=== PATIENT | female | born 1965 ===

== ENCOUNTER 2017-04-04 14:35 | Emergency (ER) | payer MEDICAID ==
[2017-04-04 14:43] VITALS: BMI 25.7
[2017-04-04 15:02] VITALS: RESP 18
[2017-04-04] MEDS ORDERED: Sodium Chloride 0.9% 1,000 ML IV STA (15:03)
[2017-04-04] MEDS ORDERED: guaiFENesin-Codeine 100-10mg/5ml Syrup (5 ml) UD PO STA (15:05)
[2017-04-04] MEDS ORDERED: Levalbuterol 1.25 MG/3 ML Inhal Soln UD IH STA (15:05)
--- NOTE | 2017-04-04 15:12 | ED PDOC ---
Arrival/HPI - General Chief Complaint: Headache Time Seen by Provider: 04/04/17 14:44 Historian: Patient - History of Present Illness Narrative History of Present Illness (Text): 04/04/17 15:13 A 51 year old female, whose past medical history includes hypertension and gastritis, presents to the emergency department complaining of a dry cough for the past 2 weeks. Patient notes a headache also x 2 weeks with the cough. She also has been having vomiting and epigastric pain, described as a burning sensation, for the past 3 days. Patient takes lisinopril and lexapro for hypertension and depression. Reports she went to [facility] [place] two days ago waited 6 hours and was not seen. Patient notes weakness, shortness of breath, diarrhea and sore throat but denies burning urination or any other complaints at this time. Time/Duration: Other (2 weeks, 3 days) Symptom Onset: Sudden Symptom Course: Unchanged Activities at Onset: Rest Context: Home Associated Symptoms (Text): weakness, shortness of breath, diarrhea and sore throat Past Medical History - Provider Review Nursing Documentation Reviewed: Yes - Infectious Disease Hx of Infectious Diseases: None - Cardiac Hx Hypertension: Yes - Gastrointestinal Hx Gastritis: Yes - Psychiatric Hx Substance Use: No - Surgical History Hx Hysterectomy: Yes Family/Social History - Physician Review Nursing Documentation Reviewed: Yes Family/Social History: No Known Family HX Smoking Status: Never Smoked Hx Alcohol Use: No Hx Substance Use: No Allergies/Home Meds Allergies/Adverse Reactions: Allergies tramadol Adverse Reaction (Verified 04/04/17 14:58) palpitations Home Medications: Home Meds Medication Instructions Recorded Confirmed Lexapro 1 tab PO DAILY 04/04/17 04/04/17 Lisinopril [Zestril] 10 mg PO DAILY 04/04/17 04/04/17 Omeprazole 20 mg PO DAILY 04/04/17 04/04/17 Review of Systems - Physician Review All systems were reviewed & negative as marked: Yes - Review of Systems Constitutional: Fatigue, Other (generalized weakness) ENT: Sore Throat Respiratory: SOB, Cough Gastrointestinal: Abdominal Pain, Diarrhea, Vomiting Genitourinary Female: absent: Dysuria, Other Neurological: Headache. absent: Dizziness, Focal Weakness Physical Exam Vital Signs Reviewed: Yes Vital Signs Temp Pulse Resp BP Pulse Ox 04/04/17 14:59 98.1 F 79 18 111/75 98 Temperature: Afebrile Blood Pressure: Normal Pulse: Regular Respiratory Rate: Normal Appearance: Positive for: Well-Appearing, Non-Toxic, Comfortable Pain Distress: None Mental Status: Positive for: Alert and Oriented X 3 - Systems Exam Head: Present: Atraumatic, Normocephalic Pupils: Present: PERRL Extroacular Muscles: Present: EOMI Conjunctiva: Present: Normal Mouth: Present: Moist Mucous Membranes Pharnyx: Present: Normal. No: ERYTHEMA, EXUDATE Neck: Present: Normal Range of Motion Respiratory/Chest: Present: Clear to Auscultation, Good Air Exchange. No: Respiratory Distress, Accessory Muscle Use Cardiovascular: Present: Regular Rate and Rhythm, Normal S1, S2. No: Murmurs Abdomen: Present: Tenderness (epigastric), Normal Bowel Sounds. No: Distention , Peritoneal Signs Back: Present: Normal Inspection Upper Extremity: Present: Normal Inspection. No: Cyanosis, Edema Lower Extremity: Present: Normal Inspection. No: Edema Neurological: Present: GCS=15, CN II-XII Intact, Speech Normal Skin: Present: Warm, Dry, Normal Color. No: Rashes Psychiatric: Present: Alert, Oriented x 3, Normal Insight, Normal Concentration Medical Decision Making ED Course and Treatment: 04/04/17 15:09 Impression: A 51 year old female with a dry cough, headache, vomiting and epigastric pain. Differential Diagnosis included but are not limited to: Bronchitis vs Pneumonia VS Gastritis Plan: -- EKG -- CT head -- chest xray -- US abdomen -- Urinalysis -- labs -- Toradol, IV fluids, Xopenex, Robitussin, Reglan -- Reassess and disposition Progress Notes: CT head: no acute findings. Chest xray: no active disease. EKG: Ordered, reviewed, and independently interpreted the EKG. Rate : 71 BPM Rhythm : NSR Interpretation : Normal interval, normal axis, no ST/T changes Abdomen US Creator : Kaylin Figueroa MD 04/04/2017 16:47 IMPRESSION: Echogenic liver may be seen in setting of hepatic parenchymal disease or fatty infiltration. 6 mm left lower pole calculus. No hydronephrosis. 04/04/17 17:52 Patient with noted history. EKG is normal with unremarkable CXR. Sono with renal stone but not showing any hydronephrosis. Labs with elevated LDH but otherwise negative, including negative CE and d-dimer. Patient given meds and reports resolution of headache, GI symptoms, and cough/shortness of breath. Will d/c on abx and robitussin AC for bronchitis. - Lab Interpretations Lab Results: 04/04/17 15:15 04/04/17 15:15 Lab Results 04/04/17 17:00: Urine Color Light yellow, Urine Appearance Clear, Urine pH 6.5, Ur Specific [place] 1.010, Urine Protein Negative, Urine Glucose (UA) Negative, Urine Ketones Negative, Urine Blood Small H, Urine Nitrate Negative, Urine Bilirubin Negative, Urine Urobilinogen 0.2, Ur Leukocyte Esterase Negative, Urine RBC Pending, Urine WBC Pending 04/04/17 15:15: Sodium 137, Potassium 4.6, Chloride 100, Carbon Dioxide 29, Anion Gap 13, BUN 10, Creatinine 0.8, Est GFR ( Amer) > 60, Est GFR (Non- Af Amer) > 60, Random Glucose 101, Calcium 9.4, Magnesium 1.8, Total Bilirubin 0.6, AST 23, ALT 28, Alkaline Phosphatase 69, Lactate Dehydrogenase 1234 H, Total Creatine Kinase 56, Troponin I < 0.01, NT-Pro-B Natriuret Pep 134, Total Protein 6.9, Albumin 3.8, Globulin 3.1, Albumin/Globulin Ratio 1.2, Lipase 52 04/04/17 15:15: PT 10.4, INR 0.96, APTT 28.1, D-Dimer, Quantitative 0.36 04/04/17 15:15: WBC 8.6, RBC 4.10, Hgb 13.0, Hct 37.8, MCV 92.2, MCH 31.7, MCHC 34.4, RDW 13.0, Plt Count 251, MPV 10.8, Gran % 76.4 H, Lymph % (Auto) 16.6 L, [place] % (Auto) 6.3 H, Eos % (Auto) 0.5 L, Baso % (Auto) 0.2, Gran # 6.53 H, Lymph # 1.4, [place] # 0.5, Eos # 0.0, Baso # 0.02 I have reviewed the lab results: Yes - RAD Interpretation Radiology Orders: 04/04/17 15:01 CHEST ONE VIEW [RAD] Stat 04/04/17 15:03 Brain [HEAD W/O CONTRAST] [CT] Stat 04/04/17 15:04 ABDOMEN COMPLETE [US] Stat - EKG Interpretation Interpreted by ED Physician: Yes Type: 12 lead EKG - Medication Orders Current Medication Orders: Discontinued Medications Guaifenesin/Codeine Phosphate (Robitussin W/Codeine) 10 ml PO ONCE STA Stop: 04/04/17 15:06 Last Admin: 04/04/17 15:23 Dose: 10 ml Sodium Chloride (Sodium Chloride 0.9%) 1,000 mls @ 999 mls/hr IV .Q1H1M STA Stop: 04/04/17 16:03 Last Admin: 04/04/17 15:24 Dose: 999 mls/hr Ketorolac Tromethamine (Toradol) 30 mg IVP STAT STA Stop: 04/04/17 15:05 Last Admin: 04/04/17 15:23 Dose: 30 mg Levalbuterol HCl (Xopenex) 1.25 mg IH STAT STA Stop: 04/04/17 15:06 Last Admin: 04/04/17 15:24 Dose: 1.25 mg Metoclopramide HCl (Reglan) 10 mg IVP STAT STA Stop: 04/04/17 15:28 Last Admin: 04/04/17 15:32 Dose: 10 mg - Scribe Statement The provider has reviewed the documentation as recorded by the Jitendra Gibbs Provider Scribe Attestation: All medical record entries made by the Manuelibshellie were at my direction and personally dictated by me. I have reviewed the chart and agree that the record accurately reflects my personal performance of the history, physical exam, medical decision making, and the department course for this patient. I have also personally directed, reviewed, and agree with the discharge instructions and disposition. Disposition/Present on Arrival - Present on Arrival Any Indicators Present on Arrival: No History of DVT/PE: No History of Uncontrolled Diabetes: No Urinary Catheter: No History of Decub. Ulcer: No History Surgical Site Infection Following: None - Disposition Have Diagnosis and Disposition been Completed?: Yes Diagnosis: Bronchitis Disposition: HOME/ ROUTINE Disposition Time: 17:50 Patient Plan: Discharge Condition: GOOD Discharge Instructions (ExitCare): Kidney Stones (ED), Acute Bronchitis (ED) Additional Instructions: Take the medications as prescribed. Drink plenty of fluids. Avoid any spicy, greasy, or fatty food. Follow up with your primary care doctor and have your doctor repeat your LDH level. Return to the emergency department if any new concerning symptoms. Prescriptions: Azithromycin [Zithromax] 2 tab PO DAILY #6 tab guaiFENesin/Codeine [Codeine/Guaifenesin 10 MG/5 Ml-100 MG/5 Ml 5] 2 tsp PO Q6H PRN #120 ml PRN Reason: Cough Referrals: Bernabe Barreto MD [Primary Care Provider] - Follow up with primary
[2017-04-04 15:30] LABS: ADD MANUAL DIFF? NO
[2017-04-04 15:42] LABS: BASO # 0.02 K/mm3 (0.0-2.0); BASO % 0.2 % (0.0-3.0); EOS % 0.5 % (1.5-5.0); GRAN # 6.53 (1.4-6.5); GRAN % 76.4 % (50.0-68.0); HEMATOCRIT 37.8 % (36.0-48.0); LYMPH # 1.4 (1.2-3.4); LYMPH % 16.6 % (22.0-35.0); MEAN CELL VOLUME 92.2 fL (80.0-105.0); MEAN CORPUSCULAR HEMOGLOBIN 31.7 pg (25.0-35.0); MEAN CORPUSCULAR HGB CONC 34.4 g/dl (31.0-37.0); MEAN PLATELET VOLUME 10.8 fl (7.0-11.0); MONO # 0.5 (0.1-0.6); MONO % 6.3 % (1.0-6.0); PLATELET COUNT 251 10^3/uL (120.0-450.0); WHITE BLOOD COUNT 8.6 10^3/ul (4.5-11.0)
[2017-04-04 15:47] LABS: ALB/GLOB RATIO 1.2 (1.1-1.8); ALKALINE PHOSPHATASE 69 U/L (38-133); ALT/SGPT 28 U/L (7-56); AST/SGOT 23 U/L (15-39); BILIRUBIN,TOTAL 0.6 mg/dL (0.2-1.3); BLOOD UREA NITROGEN 10 mg/dL (7-21); CALCIUM 9.4 mg/dL (8.4-10.5); CARBON DIOXIDE 29 mmol/L (21-33); CHLORIDE 100 mmol/L (98-107); GFR AFRICAN-AMERICAN > 60; GLUCOSE,RANDOM 101 mg/dL (70-110); LIPASE 52 U/L (23-300); MAGNESIUM 1.8 mg/dL (1.7-2.2); POTASSIUM 4.6 mmol/L (3.6-5.0); SODIUM 137 mmol/L (132-148); TOTAL PROTEIN 6.9 g/dL (5.8-8.3)
[2017-04-04 16:05] LABS: INR 0.96 (0.93-1.08); PARTIAL THROMBOPLASTIN TIME 28.1 Seconds (23.7-30.8)
[2017-04-04 16:06] LABS: TROPONIN I < 0.01 ng/mL
[2017-04-04 16:07] LABS: D DIMER 0.36 mg/L FEU (0-0.50)
--- NOTE | 2017-04-04 16:10 | CT ---
PROCEDURE: CT HEAD WITHOUT CONTRAST. HISTORY: headache COMPARISON: None available. TECHNIQUE: Axial computed tomography images were obtained through the head/brain without intravenous contrast. Radiation dose: Total exam DLP = 725 mGy-cm. This CT exam was performed using one or more of the following dose reduction techniques: Automated exposure control, adjustment of the mA and/or kV according to patient size, and/or use of iterative reconstruction technique. FINDINGS: HEMORRHAGE: No intracranial hemorrhage. BRAIN: No mass effect or edema. No atrophy or chronic microvascular ischemic changes. VENTRICLES: Unremarkable. No hydrocephalus. CALVARIUM: Unremarkable. PARANASAL SINUSES: There is opacification of the right side of the sphenoid sinus MASTOID AIR CELLS: Unremarkable as visualized. No inflammatory changes. OTHER FINDINGS: None. IMPRESSION: No acute intracranial findings
--- NOTE | 2017-04-04 16:45 | US ---
HISTORY: epigastric pain, vomiting COMPARISON: None available. TECHNIQUE: Sonographic evaluation of the abdomen. FINDINGS: LIVER: Measures 14.7 cm in sagittal dimension. Echogenic liver may be seen in setting of hepatic parenchymal disease or fatty infiltration. No focal hepatic mass identified. The main portal vein appears patent with normal directional flow. No intrahepatic bile duct dilatation. GALLBLADDER: No gallstones. No gallbladder wall thickening. Negative sonographic Spangler's sign as assessed by the medical technologist prn. COMMON BILE DUCT: Measures 4 mm. PANCREAS: Not well visualized. RIGHT KIDNEY: Measures 10.2 x 4.5 x 4.8 cm. No obstructing calculus or hydronephrosis identified. LEFT KIDNEY: Measures 9.5 x 5.1 x 4.5 cm. 0.6 x 0.6 cm echogenic focus consistent with calculus, lower pole. No hydronephrosis. SPLEEN: Measures approximately 8 cm. AORTA: Limited views appear unremarkable. IVC: Limited views appear unremarkable. OTHER FINDINGS: None. IMPRESSION: Echogenic liver may be seen in setting of hepatic parenchymal disease or fatty infiltration. 6 mm left lower pole calculus. No hydronephrosis.
[2017-04-04 17:27] LABS: PH,URINE 6.5 (4.7-8.0); URINE BILIRUBIN NEGATIVE (NEGATIVE); URINE BLOOD SMALL (NEGATIVE); URINE GLUCOSE (UA) NEGATIVE (NEGATIVE); URINE KETONE NEGATIVE (NEGATIVE); URINE LEUKOCYTE ESTERASE NEGATIVE Leu/uL (NEGATIVE); URINE PROTEIN NEGATIVE mg/dL (<30 mg/dL); URINE UROBILINOGEN 0.2 E.U./dL (<1 E.U./dL)
[2017-04-04 17:31] LABS: URINE APPEARANCE CLEAR (CLEAR); URINE COLOR LIGHT YELLOW (YELLOW)
[2017-04-04 18:10] LABS: URINE BACTERIA LARGE (NEG); URINE WBC 0 - 2 /hpf (0-6)
[2017-04-04 18:14] VITALS: BP 112/62; PULSE 69; TEMP 98; O2SAT 99
--- NOTE | 2017-04-05 08:23 | RAD ---
PROCEDURE: CHEST RADIOGRAPH, 1 VIEW HISTORY: shortness of breath, chest tight COMPARISON: None available. FINDINGS: LUNGS: The lungs are well inflated and clear. PLEURA: No pneumothorax or pleural fluid seen. CARDIOVASCULAR: Normal. OSSEOUS STRUCTURES: No significant abnormalities. VISUALIZED UPPER ABDOMEN: Normal. OTHER FINDINGS: None. IMPRESSION: No active pulmonary disease.
--- NOTE | 2017-04-05 23:24 | CARD ---
APPROVED REPORT EKG Measurement Heart [id number] ID [id number] <Conclusion> Normal sinus rhythm Normal ECG
== END 2017-04-04 18:16 | disposition home or self-care (01) ==
LOC: MERGE 14:35 → ED 14:35
DX: J40 Bronchitis, not specified as acute or chronic (principal)
CPT/HCPCS: 70450; 71010; 76700; 80053; 81001; 82550; 83615; 83690; 83735; 83880; 84484; 85025; 85378; 85610; 85730; 93005; 96361; 96374; 96375; 99285; J1885; J2765; J7040

== ENCOUNTER 2017-09-08 21:12 | Emergency (ER) | payer MEDICAID ==
[2017-09-08 21:13] VITALS: BMI 25.7
[2017-09-08 21:58] VITALS: RESP 18; TEMP 98; O2SAT 98
--- NOTE | 2017-09-08 21:58 | ED PDOC ---
Arrival/HPI - General Time Seen by Provider: 09/08/17 21:22 Historian: Patient - History of Present Illness Narrative History of Present Illness (Text): 09/08/17 21:57 Lisa Felix is a 52 year old female, whose past medical history includes hypertension, who presents to the Emergency department complaining of upper back pain tonight. Patient has a history of chronic thoracic back pain for a year with occassional exacerbations.She has been under evaluation by her doctor and pain management.States she is scheduled for an outpatient MRI on 09/25/17. Patient regularly takes Gabapentin but denies any relief. Patient denies any fever, chills, chest pain, shortness of breath, nausea, vomiting, urinary symptoms, headache, dizziness, trauma/injury, or any other complaints. Time/Duration: Other (today) Symptom Onset: Gradual Symptom Course: Other (Chronic) Activities at Onset: Light Context: Home Past Medical History - Provider Review Nursing Documentation Reviewed: Yes - Infectious Disease Hx of Infectious Diseases: None - Cardiac Hx Hypertension: Yes - Gastrointestinal Hx Gastritis: Yes - Psychiatric Hx Substance Use: No - Surgical History Hx Hysterectomy: Yes Family/Social History - Physician Review Nursing Documentation Reviewed: Yes Family/Social History: Unknown Family HX Smoking Status: Never Smoked Hx Alcohol Use: No Hx Substance Use: No Allergies/Home Meds Allergies/Adverse Reactions: Allergies tramadol Adverse Reaction (Verified 04/04/17 14:58) palpitations Home Medications: Home Meds Medication Instructions Recorded Confirmed Lexapro 1 tab PO DAILY 04/04/17 09/08/17 Lisinopril [Zestril] 10 mg PO DAILY 04/04/17 09/08/17 Omeprazole 20 mg PO DAILY 04/04/17 09/08/17 Review of Systems - Physician Review All systems were reviewed & negative as marked: Yes - Review of Systems Constitutional: Normal. absent: Fevers Respiratory: Normal. absent: SOB, Cough Cardiovascular: Normal. absent: Chest Pain Gastrointestinal: Normal. absent: Abdominal Pain, Diarrhea, Nausea, Vomiting Genitourinary Female: Normal. absent: Dysuria, Frequency, Hematuria, Urine Output Changes Musculoskeletal: Back Pain (+upper back pain) Neurological: Normal. absent: Headache, Dizziness Physical Exam Vital Signs Reviewed: Yes Vital Signs Temp Pulse Resp BP Pulse Ox 09/08/17 21:13 98 F 72 18 117/79 98 Temperature: Afebrile Blood Pressure: Normal Pulse: Regular Respiratory Rate: Normal Appearance: Positive for: Well-Appearing, Non-Toxic, Comfortable Pain Distress: None Mental Status: Positive for: Alert and Oriented X 3 - Systems Exam Head: Present: Atraumatic, Normocephalic Pupils: Present: PERRL Extroacular Muscles: Present: EOMI Conjunctiva: Present: Normal Mouth: Present: Moist Mucous Membranes Neck: Present: Normal Range of Motion Respiratory/Chest: Present: Clear to Auscultation, Good Air Exchange. No: Respiratory Distress, Accessory Muscle Use Cardiovascular: Present: Regular Rate and Rhythm, Normal S1, S2. No: Murmurs Abdomen: Present: Normal Bowel Sounds. No: Tenderness, Distention, Peritoneal Signs Back: Present: Normal Inspection. No: CVA Tenderness, Midline Tenderness, Paraspinal Tenderness Upper Extremity: Present: Normal Inspection. No: Cyanosis, Edema Lower Extremity: Present: Normal Inspection. No: Edema Neurological: Present: GCS=15, CN II-XII Intact, Speech Normal Skin: Present: Warm, Dry, Normal Color. No: Rashes Psychiatric: Present: Alert, Oriented x 3, Normal Insight, Normal Concentration Medical Decision Making ED Course and Treatment: 09/08/17 21:58 Impression: 52 year old female complaining of chronic upper back pain. Differential Diagnosis included but are not limited to: chronic pain vs. musculoskeletal pain Plan: -- CT Thoracic Spine w/o contrast -- Flexeril -- Toradol -- Reassess and disposition Prior Visits: Notes and results from previous visits were reviewed. On 04/04/17, pt was seen in the Emergency department for dry cough, headache, vomiting, and epigastric pain. Pt was discharged home. Progress Notes: 09/08/17 23:27 Reviewed radiology, CT Thoracic Spine shows: Vertebrae: No acute fracture. Degenerative changes with prominent anterior osteophyte formation. Mild S-shaped thoracolumbar scoliosis. Discs/spinal canal/neural foramina: No acute findings. No spinal canal stenosis. Additional findings: Hypoventilatory changes/atelectasis. Bilateral intrarenal calculi. IMPRESSION: No acute osseous abnormality. Degenerative changes with prominent anterior osteophyte formation. Hypoventilatory changes/atelectasis. Bilateral intrarenal calculi. 09/08/17 23:36 On reevaluation the patient feels better after medication and is in no acute distress. Patient is stable for discharge. Patient was instructed to follow up with physician/pain management/clinic in 1-2 days or return if symptoms persist/ worsen or new concerning symptoms arise. - RAD Interpretation Radiology Orders: 09/08/17 21:59 THORACIC SPINE W/O CONT [CT] Stat Textile Scrap Salvager: Radiologist - Medication Orders Current Medication Orders: Discontinued Medications Cyclobenzaprine HCl (Flexeril) 10 mg PO ONCE ONE Stop: 09/08/17 22:01 Ketorolac Tromethamine (Toradol) 60 mg IM ONCE ONE Stop: 09/08/17 22:01 - Scribe Statement The provider has reviewed the documentation as recorded by the Jitendra Eric Provider Scribe Attestation: All medical record entries made by the Scribshellie were at my direction and personally dictated by me. I have reviewed the chart and agree that the record accurately reflects my personal performance of the history, physical exam, medical decision making, and the department course for this patient. I have also personally directed, reviewed, and agree with the discharge instructions and disposition. Disposition/Present on Arrival - Present on Arrival Any Indicators Present on Arrival: No History of DVT/PE: No History of Uncontrolled Diabetes: No Urinary Catheter: No History Surgical Site Infection Following: None - Disposition Have Diagnosis and Disposition been Completed?: Yes Diagnosis: Musculoskeletal back pain Disposition: HOME/ ROUTINE Disposition Time: 23:36 Patient Plan: Discharge Patient Problems: Current Active Problems Problem Status Onset Musculoskeletal back pain Acute Condition: GOOD Discharge Instructions (ExitCare): Musculoskeletal Pain (ED) Additional Instructions: Rest/no strenuous physical activity/take meds as prescribed/follow up with your doctor this week Prescriptions: Naproxen [Naprosyn] 500 mg PO BID PRN #14 tab PRN Reason: Pain
--- NOTE | 2017-09-08 23:10 | CT ---
EXAM: CT Thoracic Spine Without Intravenous Contrast CLINICAL HISTORY: 52 years old, female; Pain; Pain in thoracic spine; Patient HX: Back and right shoulder pain TECHNIQUE: Axial computed tomography images of the thoracic spine without intravenous contrast. All CT scans at this facility use one or more dose reduction techniques, viz.: automated exposure control; ma/kV adjustment per patient size (including targeted exams where dose is matched to indication; i.e. head); or iterative reconstruction technique. Coronal and sagittal reformatted images were created and reviewed. COMPARISON: No relevant prior studies available. FINDINGS: Vertebrae: No acute fracture. Degenerative changes with prominent anterior osteophyte formation. Mild S-shaped thoracolumbar scoliosis. Discs/spinal canal/neural foramina: No acute findings. No spinal canal stenosis. Additional findings: Hypoventilatory changes/atelectasis. Bilateral intrarenal calculi. IMPRESSION: No acute osseous abnormality. Degenerative changes with prominent anterior osteophyte formation. Hypoventilatory changes/atelectasis. Bilateral intrarenal calculi.
[2017-09-09 00:06] VITALS: BP 112/70; PULSE 71
== END 2017-09-08 23:50 | disposition home or self-care (01) ==
LOC: ED 21:12
DX: M54.9 Dorsalgia, unspecified (principal); I10 Essential (primary) hypertension
CPT/HCPCS: 72128; 96372; 99282; J1885

== ENCOUNTER 2018-10-16 21:28 | Observation (INO) | payer MEDICAID ==
[2018-10-16 21:37] VITALS: BMI 27.6
--- NOTE | 2018-10-16 22:00 | ED PDOC ---
Arrival/HPI - General Chief Complaint: Chest Pain Time Seen by Provider: 10/16/18 21:38 Historian: Patient - History of Present Illness Narrative History of Present Illness (Text): 10/16/18 21:55 53 year old female, whose past medical history includes hypertension (on Lisinopril), presents to the emergency department for evaluation of intermittent chest pain which began this evening. Patient describes the chest pain as a crush ing sensation. Patient is not a smoker. Patient denies any fever, chills, shortness of breath, nausea, vomiting, diarrhea, urinary symptoms, back pain, neck pain, headache, dizziness, or any other complaints. Time/Duration: Other (this evening) Symptom Onset: Gradual Symptom Course: Intermittent Activities at Onset: Light Context: Home Past Medical History - Provider Review Nursing Documentation Reviewed: Yes - Infectious Disease Hx of Infectious Diseases: None - Cardiac Hx Cardiac Disorders: Yes Hx Hypertension: Yes - Pulmonary Hx Respiratory Disorders: No - Neurological Hx Neurological Disorder: No - HEENT Hx HEENT Disorder: No - Renal Hx Renal Disorder: No - Endocrine/Metabolic Hx Endocrine Disorders: No - Hematological/Oncological Hx Blood Disorders: No - Integumentary Hx Dermatological Disorder: No - Musculoskeletal/Rheumatological Hx Musculoskeletal Disorders: No - Gastrointestinal Hx Gastrointestinal Disorders: Yes Hx Gastritis: Yes - Genitourinary/Gynecological Hx Genitourinary Disorders: No - Psychiatric Hx Psychophysiologic Disorder: No Hx Substance Use: No - Surgical History Hx Hysterectomy: Yes - Anesthesia Hx Anesthesia: Yes Hx Anesthesia Reactions: No Hx Malignant Hyperthermia: No Family/Social History - Physician Review Nursing Documentation Reviewed: Yes Family/Social History: Diabetes Smoking Status: Never Smoked Hx Alcohol Use: No Hx Substance Use: No Allergies/Home Meds Allergies/Adverse Reactions: Allergies tramadol Adverse Reaction (Verified 10/16/18 21:37) palpitations Home Medications: Home Meds Medication Instructions Recorded Confirmed Lisinopril [Zestril] 10 mg PO DAILY 04/04/17 10/16/18 Review of Systems - Physician Review All systems were reviewed & negative as marked: Yes - Review of Systems Constitutional: absent: Fevers Respiratory: absent: SOB, Cough Cardiovascular: Chest Pain Gastrointestinal: absent: Diarrhea, Nausea, Vomiting Genitourinary Female: absent: Dysuria, Frequency, Hematuria Musculoskeletal: absent: Back Pain, Neck Pain, Other (leg pain) Neurological: absent: Headache, Dizziness Physical Exam Vital Signs Reviewed: Yes Appearance: Positive for: Well-Appearing, Non-Toxic, Comfortable Pain Distress: None Mental Status: Positive for: Alert and Oriented X 3 - Systems Exam Head: Present: Atraumatic, Normocephalic Pupils: Present: PERRL Extroacular Muscles: Present: EOMI Conjunctiva: Present: Normal Mouth: Present: Moist Mucous Membranes Neck: Present: Normal Range of Motion Respiratory/Chest: Present: Clear to Auscultation, Good Air Exchange. No: Respiratory Distress, Accessory Muscle Use Cardiovascular: Present: Regular Rate and Rhythm, Normal S1, S2. No: Murmurs Abdomen: No: Tenderness, Distention, Peritoneal Signs Back: Present: Normal Inspection Upper Extremity: Present: Normal Inspection. No: Cyanosis, Edema Lower Extremity: Present: Normal Inspection. No: Edema Neurological: Present: GCS=15, CN II-XII Intact, Speech Normal Skin: Present: Warm, Dry, Normal Color. No: Rashes Psychiatric: Present: Alert, Oriented x 3, Normal Insight, Normal Concentration Medical Decision Making ED Course and Treatment: 10/16/18 21:55 Impression: 53 year old female presents complaining of intermittent chest pain that began this evening. Plan: -- EKG -- Labs -- Chest X-ray -- Aspirin -- Reassess and disposition Progress Notes: 10/16/18 23:53 EKG shows NSR at 76 BPM with possible old anterior infarct. Nonspecific ST/T changes. Interpreted by me. 10/17/18 00:25 CXR Impression: As read by me, No acute process. 10/17/18 00:45 Case discussed with medical staffing coordinator and Dr. Tien Beckford who is aware and agrees with the plan. Accepts patient into hospitalist service. - RAD Interpretation Radiology Orders: 10/16/18 21:48 CHEST PORTABLE [RAD] Stat - Medication Orders Current Medication Orders: Discontinued Medications Aspirin (Aspirin) 325 mg PO ONCE STA Stop: 10/16/18 21:48 - Scribe Statement The provider has reviewed the documentation as recorded by the Jitendra Huntley Provider Scribe Attestation: All medical record entries made by the Scribe were at my direction and personally dictated by me. I have reviewed the chart and agree that the record accurately reflects my personal performance of the history, physical exam, medical decision making, and the department course for this patient. I have also personally directed, reviewed, and agree with the discharge instructions and disposition. Disposition/Present on Arrival - Present on Arrival Any Indicators Present on Arrival: No History of DVT/PE: No History of Uncontrolled Diabetes: No Urinary Catheter: No History of Decub. Ulcer: No History Surgical Site Infection Following: None - Disposition Have Diagnosis and Disposition been Completed?: Yes Diagnosis: Chest pain Disposition: HOSPITALIZED Disposition Time: 00:44 Patient Plan: Observation Patient Problems: Current Active Problems Problem Status Onset Chest pain Acute Condition: STABLE
[2018-10-16 22:10] LABS: HEMOGLOBIN 12.8 g/dL (12.0-16.0); MEAN CELL VOLUME 90.7 fl (80.0-105.0); MEAN CORPUSCULAR HEMOGLOBIN 31.2 pg (25.0-35.0); MEAN CORPUSCULAR HGB CONC 34.4 g/dl (31.0-37.0); MEAN PLATELET VOLUME 10.6 fl (7.0-11.0); RBC 4.1 10^6/uL (3.5-6.1); RED CELL DISTRIBUTION WIDTH 12.4 % (11.5-14.5); WHITE BLOOD COUNT 9.5 10^3/uL (4.5-11.0)
[2018-10-16 22:20] LABS: ALB/GLOB RATIO 1.2 (1.1-1.8); ALBUMIN 4.1 g/dL (3.0-4.8); BLOOD UREA NITROGEN 17 mg/dL (7-21); CALCIUM 9.3 mg/dL (8.4-10.5); GFR NON-AFRICAN AMERICAN > 60; INR 1.05
[2018-10-16 22:35] LABS: ALT/SGPT 36 U/L (7-56); AST/SGOT 25 U/L (14-36)
[2018-10-16 23:10] LABS: TROPONIN I < 0.01 ng/mL
[2018-10-17 01:16] VITALS: O2SAT 98
--- NOTE | 2018-10-17 02:21 | CP.PCM.HP ---
History of Present Illness - History of Present Illness History of Present Illness: Eric Zhang, PGY-1 Medicine H&P for Marissa Butler: CC: CP Pt is a 53 yo F with pmhx of HTN, gastritis and GERD who presents to the ED for complaint of CP which started at 8:30 this AM. She states that this morning she was laying down in bed when she noticed that she was having chest pressure and pain that rated at a 9/10 located substernally, and radiated to her head. She reports that this pain was not exacerbated by activity and that it was self limiting, episode lasted only about 1 min. She states that his has occured 2 oth er times, one bout of the same time of pain which also lasted for 1 minute which occured about 1 month ago. The second bout was about 2 weeks prior and occured under similar circumstances. She states that she has no hx of CAD or stent placement. She states that when the pain reaches her head she feels like her head is hot and then her whole body becomes warm. Pt at this time admits to chest pain that is now better at 4/10 and a dry cough which started about 2 weeks ago. She admits to sick contacts at work. She denies fevers, chills, headache, lightheadedness, dizziness, weakness, palpitations, SOB, leg swelling, abd pain, n/v, c/d, or dysuria. Pmhx: HTN, Gastritis, GERD Pshx: Denies Meds: Omperazole, Lisinopril 10 All: Tramadol - anaphylaxis Social: Denies any tobacco hx, denies etoh or illicit drug use Fam: Mom: Bone ca PMD: Dr. Carlos Pharm: [facility] Present on Admission - Present on Admission Any Indicators Present on Admission: No Review of Systems - Review of Systems Review of Systems: 12 point ROS and reviewed and negative except noted in HPI above. Past Patient History - Infectious Disease Hx of Infectious Diseases: None - Past Social History Smoking Status: Never Smoked - CARDIAC Hx Cardiac Disorders: Yes Hx Hypertension: Yes - PULMONARY Hx Respiratory Disorders: No - NEUROLOGICAL Hx Neurological Disorder: No - HEENT Hx HEENT Problems: No - RENAL Hx Chronic Kidney Disease: No - ENDOCRINE/METABOLIC Hx Endocrine Disorders: No - HEMATOLOGICAL/ONCOLOGICAL Hx Blood Disorders: No - INTEGUMENTARY Hx Dermatological Problems: No - MUSCULOSKELETAL/RHEUMATOLOGICAL Hx Musculoskeletal Disorders: No - GASTROINTESTINAL Hx Gastrointestinal Disorders: Yes Hx Gastritis: Yes - GENITOURINARY/GYNECOLOGICAL Hx Genitourinary Disorders: No - PSYCHIATRIC Hx Psychophysiologic Disorder: No Hx Substance Use: No - SURGICAL HISTORY Hx Hysterectomy: Yes - ANESTHESIA Hx Anesthesia: Yes Hx Anesthesia Reactions: No Hx Malignant Hyperthermia: No Meds Allergies/Adverse Reactions: Allergies Allergy/AdvReac Type Severity Reaction Status Date / Time tramadol AdvReac palpitation Verified 10/16/18 21:37 s Physical Exam - Constitutional Appears: Non-toxic, No Acute Distress - Head Exam Head Exam: ATRAUMATIC, NORMAL INSPECTION, NORMOCEPHALIC - Eye Exam Eye Exam: EOMI, Normal appearance, PERRL - Respiratory Exam Respiratory Exam: Chest Wall Tenderness, Clear to Auscultation Bilateral, NORMAL BREATHING PATTERN. absent: Accessory Muscle Use, Decreased Breath Sounds, Rales, Rhonchi, Wheezes, Respiratory Distress, Stridor - Cardiovascular Exam Cardiovascular Exam: RRR, +S1, +S2. absent: Gallop, Rubs - GI/Abdominal Exam GI & Abdominal Exam: Normal Bowel Sounds, Soft. absent: Firm, Guarding, Hernia, Tenderness - Extremities Exam Extremities exam: Positive for: normal capillary refill, normal inspection, pedal pulses present. Negative for: pedal edema - Back Exam Back exam: NORMAL INSPECTION. absent: CVA tenderness (L), CVA tenderness (R) - Neurological Exam Neurological exam: Alert, Oriented x3 - Psychiatric Exam Psychiatric exam: Normal Affect, Normal Mood - Skin Skin Exam: Dry, Normal Color, Warm Results - Vital Signs Recent Vital Signs: Last Vital Signs Temp 98.2 F 10/16/18 21:30 Pulse 72 10/16/18 21:30 Resp 18 10/16/18 21:30 BP 126/74 10/16/18 21:30 Pulse Ox 98 10/16/18 21:30 - Labs Result Diagrams: 10/16/18 22:05 10/16/18 22:05 Labs: Laboratory Results - last 24 hr 10/16/18 10/16/18 10/16/18 22:05 22:05 22:05 WBC 9.5 RBC 4.10 Hgb 12.8 Hct 37.2 MCV 90.7 MCH 31.2 MCHC 34.4 RDW 12.4 Plt Count 251 MPV 10.6 PT 12.0 INR 1.05 APTT 31.0 Sodium 135 Potassium 3.9 Chloride 104 Carbon Dioxide 23 Anion Gap 11 BUN 17 Creatinine 0.8 Est GFR ( Amer) > 60 Est GFR (Non-Af Amer) > 60 Random Glucose 104 Calcium 9.3 Total Bilirubin 0.6 AST 25 ALT 36 Alkaline Phosphatase 68 Lactate Dehydrogenase Total Creatine Kinase Troponin I Total Protein 7.5 Albumin 4.1 Globulin 3.3 Albumin/Globulin Ratio 1.2 10/16/18 22:05 WBC RBC Hgb Hct MCV MCH MCHC RDW Plt Count MPV PT INR APTT Sodium Potassium Chloride Carbon Dioxide Anion Gap BUN Creatinine Est GFR ( Amer) Est GFR (Non-Af Amer) Random Glucose Calcium Total Bilirubin AST ALT Alkaline Phosphatase Lactate Dehydrogenase 528 Total Creatine Kinase 52 Troponin I < 0.01 Total Protein Albumin Globulin Albumin/Globulin Ratio Assessment & Plan - Assessment and Plan (Free Text) Assessment: Pt is a 53 yo F with pmhx of HTN, gastritis and GERD who presents to the ED for complaint of CP which started at 8:30 this AM. The chest pain is reproducible upon exam, chest pain is not worsened by exertion, and chest pain does not radiate to jaw or down L arm. Initial trop is (-) and CXR also shows no active disease, read by me. Plan: 1. Atypical chest pain likely 2/2 costochondritis but r/o ACS: - Will admit to tele for obs - Initial trop is negative - F/u serial trops and EKG - TSH - Free T4 - Lipid profile - A1c - Cardio consult 2. Dry cough: - Tessalon pearls PRN - CXR shows no active dz, read by me 3. Hx of HTN - Cont home lisinopril 4. Hx of GERD: - Protonix 40 qd 5. PPx: - GI: Protonix - DVT: SCDs Case seen and discussed with Dr. Kim Zhang, PGY-1
[2018-10-17 04:08] VITALS: RESP 20
[2018-10-17] MEDS ORDERED: Pantoprazole 40 mg EC Tab PO SCH (06:00)
[2018-10-17 06:09] VITALS: BP 110/70; TEMP 67
[2018-10-17 06:58] LABS: FREE T4 0.69 ng/dL (0.78-2.19)
[2018-10-17 07:49] LABS: HDL CHOLESTEROL 36 mg/dL (29-60)
[2018-10-17 07:52] LABS: TROPONIN I < 0.01 ng/mL
[2018-10-17 08:00] LABS: LDL CHOLESTEROL 113 mg/dL (0-129)
--- NOTE | 2018-10-17 08:51 | CP.PCM.CON ---
History of Present Illness - History of Present Illness History of Present Illness: Awake, alert, no distress, denies chest pain now Reason for consultation: Cardiac evaluation of substernal chest pain at rest radiating to head. Brief history of present illness: A 53 year old female who came in to the ER due to substernal chest pain at rest radiating to head. She claimed that it occurred about 1 month ago and then again about 2 weeks prior to this admission. She got worried this time so she came to the ER. She had stress test 3 years ago at [facility] [place] and claimed to be normal. History of hypertension and GERD. Denies smoking. Seen and examined by me and Dr. Cabrera Review of Systems - Review of Systems All systems: reviewed and no additional remarkable complaints except Review of Systems: as per HPI Past Patient History - Infectious Disease Hx of Infectious Diseases: None - Past Social History Smoking Status: Never Smoked - CARDIAC Hx Cardiac Disorders: Yes Hx Hypertension: Yes - PULMONARY Hx Respiratory Disorders: No - NEUROLOGICAL Hx Neurological Disorder: No - HEENT Hx HEENT Problems: No - RENAL Hx Chronic Kidney Disease: No - ENDOCRINE/METABOLIC Hx Endocrine Disorders: No - HEMATOLOGICAL/ONCOLOGICAL Hx Blood Disorders: No - INTEGUMENTARY Hx Dermatological Problems: No - MUSCULOSKELETAL/RHEUMATOLOGICAL Hx Musculoskeletal Disorders: No - GASTROINTESTINAL Hx Gastrointestinal Disorders: Yes Hx Gastritis: Yes - GENITOURINARY/GYNECOLOGICAL Hx Genitourinary Disorders: No - PSYCHIATRIC Hx Psychophysiologic Disorder: No Hx Substance Use: No - SURGICAL HISTORY Hx Hysterectomy: Yes - ANESTHESIA Hx Anesthesia: Yes Hx Anesthesia Reactions: No Hx Malignant Hyperthermia: No Meds Allergies/Adverse Reactions: Allergies Allergy/AdvReac Type Severity Reaction Status Date / Time tramadol AdvReac palpitation Verified 10/16/18 21:37 s - Medications Medications: Current Medications Aspirin (Aspirin Chewable) 81 mg PO DAILY [facility] Benzonatate (Tessalon Perles) 100 mg PO TID PRN PRN Reason: Cough Ibuprofen (Motrin Tab) 600 mg PO Q6H PRN PRN Reason: Pain, moderate (4-7) Lisinopril (Zestril) 10 mg PO DAILY [facility] Pantoprazole Sodium (Protonix Ec Tab) 40 mg PO 0600 [facility] Last Admin: 10/17/18 05:35 Dose: 40 mg Physical Exam - Constitutional Appears: Non-toxic, No Acute Distress - Head Exam Head Exam: NORMAL INSPECTION, NORMOCEPHALIC - Eye Exam Eye Exam: Normal appearance Pupil Exam: NORMAL ACCOMODATION - ENT Exam ENT Exam: Mucous Membranes Moist, Normal Exam - Respiratory Exam Respiratory Exam: Decreased Breath Sounds, Clear to Auscultation Bilateral, NORMAL BREATHING PATTERN - Cardiovascular Exam Cardiovascular Exam: REGULAR RHYTHM, +S1, +S2 Additional comments: Telemetry NSR denies chest pain now - GI/Abdominal Exam GI & Abdominal Exam: Normal Bowel Sounds, Soft - Extremities Exam Extremities exam: Positive for: full ROM, normal capillary refill - Neurological Exam Neurological exam: Alert, Oriented x3 - Psychiatric Exam Psychiatric exam: Normal Affect, Normal Mood - Skin Skin Exam: Dry, Normal Color, Warm Results - Vital Signs Recent Vital Signs: Last Vital Signs Temp 67 F L 10/17/18 06:00 Pulse 67 10/17/18 06:00 Resp 20 10/17/18 06:00 BP 110/70 10/17/18 06:00 Pulse Ox 98 10/17/18 01:56 - Labs Result Diagrams: 10/16/18 22:05 10/16/18 22:05 Labs: Laboratory Results - last 24 hr 10/16/18 10/16/18 10/16/18 22:05 22:05 22:05 WBC 9.5 RBC 4.10 Hgb 12.8 Hct 37.2 MCV 90.7 MCH 31.2 MCHC 34.4 RDW 12.4 Plt Count 251 MPV 10.6 PT 12.0 INR 1.05 APTT 31.0 Sodium 135 Potassium 3.9 Chloride 104 Carbon Dioxide 23 Anion Gap 11 BUN 17 Creatinine 0.8 Est GFR ( Amer) > 60 Est GFR (Non-Af Amer) > 60 Random Glucose 104 Calcium 9.3 Phosphorus Magnesium Total Bilirubin 0.6 AST 25 ALT 36 Alkaline Phosphatase 68 Lactate Dehydrogenase Total Creatine Kinase Troponin I Total Protein 7.5 Albumin 4.1 Globulin 3.3 Albumin/Globulin Ratio 1.2 Triglycerides Cholesterol LDL Cholesterol Direct HDL Cholesterol Free T4 TSH 3rd Generation 10/16/18 10/16/18 10/17/18 22:05 22:05 06:00 WBC RBC Hgb Hct MCV MCH MCHC RDW Plt Count MPV PT INR APTT Sodium Potassium Chloride Carbon Dioxide Anion Gap BUN Creatinine Est GFR ( Amer) Est GFR (Non-Af Amer) Random Glucose Calcium Phosphorus 3.4 Magnesium 1.8 Total Bilirubin AST ALT Alkaline Phosphatase Lactate Dehydrogenase 528 Total Creatine Kinase 52 Troponin I < 0.01 Total Protein Albumin Globulin Albumin/Globulin Ratio Triglycerides Cholesterol LDL Cholesterol Direct HDL Cholesterol Free T4 0.69 L TSH 3rd Generation 3.66 10/17/18 06:30 WBC RBC Hgb Hct MCV MCH MCHC RDW Plt Count MPV PT INR APTT Sodium Potassium Chloride Carbon Dioxide Anion Gap BUN Creatinine Est GFR ( Amer) Est GFR (Non-Af Amer) Random Glucose Calcium Phosphorus Magnesium Total Bilirubin AST ALT Alkaline Phosphatase Lactate Dehydrogenase Total Creatine Kinase Troponin I < 0.01 Total Protein Albumin Globulin Albumin/Globulin Ratio Triglycerides 91 Cholesterol 150 LDL Cholesterol Direct 113 HDL Cholesterol 36 Free T4 TSH 3rd Generation Assessment & Plan - Assessment and Plan (Free Text) Assessment: A 53 year old female who came in to the ER due to substernal chest pain at rest radiating to head. She claimed that it occurred about 1 month ago and about 2 weeks prior to this admission. She got worried this time so she came to the ER. She had stress test 3 years ago at [facility] and claimed to be normal. She works as a caregiver. History of hypertension and GERD. Denies smoking. Troponin normal x 2. EKG showed NSR. Atypical chest pain. For Echo and stress test today.[place] cardiac [place] [facility] Plan: Denies chest pain, no distress For Stress test today For Echo today Heart rate controlled Blood pressure controlled On ASA 81 mg daily, Lisinopril 10 mg daily Continue Motrin for pain Continue current treatment Continue current medications Chart reviewed Further recommendations after stress test and echo Will follow up Plan and treatment discussed with Dr. Cabrera Thank you Dr. Barraza for the opportunity of taking care of Lisa Eddyuri - Date & Time Date: 10/17/18 Time: 06:20
--- NOTE | 2018-10-17 09:36 | RAD ---
Date of service: 10/16/2018 HISTORY: chest pain COMPARISON: 04/04/2017 FINDINGS: LUNGS: No active pulmonary disease. PLEURA: No significant pleural effusion identified, no pneumothorax apparent. CARDIOVASCULAR: No aortic atherosclerotic calcification present. Normal cardiac size. No pulmonary vascular congestion. OSSEOUS STRUCTURES: No significant abnormalities. VISUALIZED UPPER ABDOMEN: Normal. OTHER FINDINGS: None. IMPRESSION: No active disease.
[2018-10-17 12:17] VITALS: PULSE 63
--- NOTE | 2018-10-17 12:38 | CARD ---
APPROVED REPORT Date of service: 10/17/2018 EXAM: Two-dimensional and M-mode echocardiogram with Doppler and color Doppler. INDICATION LVFX 2D DIMENSIONS Left Atrium (2D)3.9 (1.6-4.0cm)IVSd0.8 (0.7-1.1cm) LVDd4.7 (3.9-5.9cm)PWd1.0 (0.7-1.1cm) LVDs3.1 (2.5-4.0cm)FS (%) 34.6 % LVEF (%)63.6 (>50%) M-Mode DIMENSIONS Aortic Root3.00 (2.2-3.7cm)Aortic Cusp Exc.1.80 (1.5-2.0cm) Aortic Valve AoV Peak Jpqetpvv721.0cm/Michael Peak GR.5mmHg Mitral Valve MV E Ckfjbtim26.8cm/sMV A Pijzmlac26.6cm/sE/A ratio0.8 TDI Lateral E' Peak V7.60cm/sMedial E' Peak V7.12cm/sE/Lateral E'6.8 E/Medial E'7.3 Pulmonary Valve PV Peak Qftxaqyc94.3cm/sPV Peak Grad.1mmHg Tricuspid Valve TR Peak Pzyqtymp683cv/sRAP [id number] Peak Gr.25mmHg [id number] LEFT VENTRICLE The left ventricle is normal size. There is normal left ventricular wall thickness. The left ventricular function is normal.EF-60-65% There is normal LV segmental wall motion. Transmitral Doppler flow pattern is Grade III-reversible restrictive diastolic dysfunction. No left ventricle thrombus noted on this study. There is no ventricular septal defect visualized. There is no left ventricular aneurysm. There is no mass noted in the left ventricle. RIGHT VENTRICLE The right ventricle is normal size. There is normal right ventricular wall thickness. The right ventricular systolic function is normal. ATRIA The left atrium size is normal. The right atrium size is normal. The interatrial septum is intact with no evidence for an atrial septal defect. AORTIC VALVE The aortic valve is thickened but opens well. No aortic regurgitation is present. There is no aortic valvular stenosis. There is no aortic valvular vegetation. MITRAL VALVE The mitral valve is thickened but opens well. Mitral regurgitation is trace to mild. There is no mitral valve stenosis. There is no evidence of mitral valve prolapse. TRICUSPID VALVE The tricuspid valve leaflets are thickened , but open well. There is mild to moderate tricuspid regurgitation.[id number] mmof hg. There is no tricuspid valve stenosis. There is no tricuspid valve prolapse or vegetation. PULMONIC VALVE The pulmonary valve is normal in structure. There is no pulmonic valvular regurgitation. There is no pulmonic valvular stenosis. GREAT VESSELS The aortic root is normal in size. The ascending aorta is normal in size. The pulmonary artery is normal. The IVC is normal in size and collapses >50% with inspiration. PERICARDIAL EFFUSION There is no pleural effusion. There is no pericardial effusion. <Conclusion> Normal chamber Size. EF-60-65% Mitral regurgitation is trace to mild. There is mild to moderate tricuspid regurgitation.[id number] mmof hg. The IVC is normal in size and collapses >50% with inspiration. There is no pericardial effusion. No Vegetation or thrombus noted.
--- NOTE | 2018-10-17 13:20 | CON ---
DATE: 10/17/2018 REASON FOR CONSULTATION: Chest pain. This note is in addition to dictated by our nurse practitioner, Belle Lobo APN. In summary, a 53-year-old female came in for substernal chest pain. 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 The patient risk, benefits, and alternatives were explained to the patient. The patient agreed, will proceed for stress test and echo. The patient has a history of hypertension, taking lisinopril. So far, troponin remains negative x2 and we will wait for lipid profile and TSH. Baseline EKG shows normal sinus, no acute ST-T changes noted. Further recommendations after the noninvasive workup, echo and stress test, will keep n.p.o. Thank you for providing us the opportunity in taking care of patient, Elvira Gonzalez. Luis Angel Cabrera MD
--- NOTE | 2018-10-17 16:27 | CARD ---
APPROVED REPORT Date of service: 10/17/2018 Protocol: TIFF Test Type: Sestamibi Stress Test Attending Physician: Dr. Luis Angel Cabrera Referring Physician: Dr. Soo Barraza Test Indications: Chest Pain Height:5 ft 1 in Weight:146lbs Medications: aspirin, tesselon, motrin zestril, protonix Medical History: 53 year old female with h/o htn, gastritis and hysterectomy Target HR: 167 bpm Resting ECG: normal Resting Heart Rate: 87 bpm Resting Blood Pressure: 116/78mmHg Submaximum (85%): 142 bpm POST EXERCISE Reason for Termination: Fatigue Target HR: No Max HR: 134 bpm 80% of Maximum Predicted HR: 167 bpm Exercise duration: 07:26 min:sec, 3 Stage Exercise capacity: 9.1METs Max Blood Pressure: 140/82mmHg Blood Pressure response to exercise: normal resting BP - appropriate response Heart Rate response to exercise: appropriate Chest Pain: No, none Angina index: 0 Arrhythmia: No, none ST Change: No, none Deviation: 0 mm INTERPRETATION Stress EKG Conclusion: Negatve Stress test for ischemia and for chest pain, Nuclear scan to follow. Signed by Luis Angel Cabrera Electronically Approved: 10/17/2018 10:48:51 EXAM: Myocardial Perfusion REST/STRESS Stress Test Type: Exercise Treadmill Imaging Protocol The imaging protocol used to acquire images was Rest Tc-99m/stress Tc-99m 1 day Stress Spect myocardial perfusion imaging was performed in supine position 50 minutes following the injection of 10.6 mCi of Tc-99 Myoview. At peak stress, the patient was injected intravenously with 30.6mCi of Tc-99 tetrofosmin after an exercise time of 7 minutes and 26 seconds. Gated Stress Spect was performed 80 minutes after intravenous Tc-99 Myoview injection. The images were gated to evaluate regional wall motion and calculate ventricular ejection fraction.Images were reconstructed using backfilter projection method in short horizontal and verticle long axis. Spect slices were generated. LV Perfusion The quality of the study is good. The left ventricle is normal in size. The right ventricle is unremarkable. The lung uptake is normal. The distribution of tracer reveals mildlyvdecreased perfusion involving distal anterior wall on the stress study. The remainder of the LV myocardium is unremarkable. The rest myocardial perfusion study shows no significant change. Wall Motion Wall motion study shows good contractility of the left ventricle. LVEF = 67%. Conclusion 1. Essentially normal SPECT myocardial perfusion study. 2. Fixed, anterior defect is most likely due to breast attenuation. 3. Normal gated wall motion of the left ventricle.
--- NOTE | 2018-10-17 18:16 | CARD ---
APPROVED REPORT Date of service: 10/16/2018 EKG Measurement Heart [id number] <Conclusion> Normal sinus rhythm Normal ECG
--- NOTE | 2018-10-20 12:31 | CP.PCM.DIS ---
<Reyna Bermudez - Last Filed: 10/20/18 12:33> Provider - Provider Date of Admission: 10/17/18 00:38 Attending physician: Lizzy Friend DO Primary care physician: Bernabe Barreto MD Consults: 10/17/18 01:11 Cardiology Consult Routine Comment: Consulting Provider: Luis Angel Siddiqui Consulting Physician: Luis Angel Siddiqui Reason for Consult: chest pain r/o ACS Time Spent in preparation of Discharge (in minutes): 45 Hospital Course - Lab Results Lab Results: Most Recent Lab Values WBC 9.5 10^3/uL (4.5-11.0) 10/16/18 22:05 RBC 4.10 10^6/uL (3.5-6.1) 10/16/18 22:05 Hgb 12.8 g/dL (12.0-16.0) 10/16/18 22:05 Hct 37.2 % (36.0-48.0) 10/16/18 22:05 MCV 90.7 fl (80.0-105.0) 10/16/18 22:05 MCH 31.2 pg (25.0-35.0) 10/16/18 22:05 MCHC 34.4 g/dl (31.0-37.0) 10/16/18 22:05 RDW 12.4 % (11.5-14.5) 10/16/18 22:05 Plt Count 251 10^3/uL (120.0-450.0) 10/16/18 22:05 MPV 10.6 fl (7.0-11.0) 10/16/18 22:05 PT 12.0 SECONDS (9.4-12.5) 10/16/18 22:05 INR 1.05 10/16/18 22:05 APTT 31.0 Seconds (25.1-36.5) 10/16/18 22:05 Sodium 135 mmol/L (132-148) 10/16/18 22:05 Potassium 3.9 mmol/L (3.6-5.0) 10/16/18 22:05 Chloride 104 mmol/L (98-107) 10/16/18 22:05 Carbon Dioxide 23 mmol/L (21-33) 10/16/18 22:05 Anion Gap 11 (10-20) 10/16/18 22:05 BUN 17 mg/dL (7-21) 10/16/18 22:05 Creatinine 0.8 mg/dl (0.7-1.2) 10/16/18 22:05 Est GFR ( Amer) > 60 10/16/18 22:05 Est GFR (Non-Af Amer) > 60 10/16/18 22:05 Random Glucose 104 mg/dL (70-110) 10/16/18 22:05 Hemoglobin A1c 5.5 % (4.2-6.5) 10/17/18 06:00 Calcium 9.3 mg/dL (8.4-10.5) 10/16/18 22:05 Phosphorus 3.4 mg/dL (2.5-4.5) 10/16/18 22:05 Magnesium 1.8 mg/dL (1.7-2.2) 10/16/18 22:05 Total Bilirubin 0.6 mg/dL (0.2-1.3) 10/16/18 22:05 AST 25 U/L (14-36) 10/16/18 22:05 ALT 36 U/L (7-56) 10/16/18 22:05 Alkaline Phosphatase 68 U/L (38-126) 10/16/18 22:05 Lactate Dehydrogenase 528 U/L (333-699) 10/16/18 22:05 Total Creatine Kinase 52 U/L (35-230) 10/16/18 22:05 Troponin I < 0.01 ng/mL 10/17/18 06:30 Total Protein 7.5 g/dL (5.8-8.3) 10/16/18 22:05 Albumin 4.1 g/dL (3.0-4.8) 10/16/18 22:05 Globulin 3.3 gm/dL 10/16/18 22:05 Albumin/Globulin Ratio 1.2 (1.1-1.8) 10/16/18 22:05 Triglycerides 91 mg/dL (35-160) 10/17/18 06:30 Cholesterol 150 mg/dL (130-200) 10/17/18 06:30 LDL Cholesterol Direct 113 mg/dL (0-129) 10/17/18 06:30 HDL Cholesterol 36 mg/dL (29-60) 10/17/18 06:30 Free T4 0.69 ng/dL (0.78-2.19) L 10/17/18 06:00 TSH 3rd Generation 3.66 mIU/mL (0.46-4.68) 10/17/18 06:00 - Hospital Course Hospital Course: After further evaulation later in the day after admission the patient's symptoms had fully resolved. troponins negative x3, ECHO unremarkable for chest pain causes, nuclear scan completed and will follow up results. Will call patient regarding results of stress test. Dr. Cabrera, therapy aide recommending patient stable for Discharge home with home lisinopril. This is a brief summary of the patient's stay for further information please see chart. - Date & Time of H&P Date of H&P: 10/17/18 Time of H&P: 12:15 Discharge Exam - Head Exam Head Exam: NORMAL INSPECTION, NORMOCEPHALIC - Eye Exam Eye Exam: EOMI - ENT Exam ENT Exam: Mucous Membranes Moist - Respiratory Exam Respiratory Exam: Clear to PA & Lateral, NORMAL BREATHING PATTERN - Cardiovascular Exam Cardiovascular Exam: REGULAR RHYTHM - GI/Abdominal Exam GI & Abdominal Exam: Soft. absent: Distended, Guarding, Rigid, Tenderness - Extremities Exam Extremities exam: normal capillary refill, pedal pulses present - Neurological Exam Neurological exam: Alert, Oriented x3 - Psychiatric Exam Psychiatric exam: Normal Affect, Normal Mood - Skin Skin Exam: Dry, Intact, Normal Color, Warm Discharge Plan - Follow Up Plan Condition: STABLE Disposition: HOME/ ROUTINE Instructions: Chest Pain (DC) Additional Instructions: Please follow up with your primary care doctor, Dr. Barreto, within 3-5 days of discharge. Please follow up with Dr. Cabrera, [employer], within 1 week of discharge. Continue your home medications: Lisinopril 10mg DAILY If your symptoms return, please go to the nearest emergency department. Referrals: Luis Angel Cabrera MD [Staff Provider] - Bernabe Barreto MD [Primary Care Provider] - <Lizzy Friend - Last Filed: 10/20/18 15:32> Provider - Provider Date of Admission: 10/17/18 00:38 Attending physician: Lizzy Friend DO Primary care physician: Bernabe Barreto MD Consults: 10/17/18 01:11 Cardiology Consult Routine Comment: Consulting Provider: Luis Angel Siddiqui Consulting Physician: Luis Angel Siddiqui Reason for Consult: chest pain r/o ACS Hospital Course - Lab Results Lab Results: Most Recent Lab Values WBC 9.5 10^3/uL (4.5-11.0) 10/16/18 22:05 RBC 4.10 10^6/uL (3.5-6.1) 10/16/18 22:05 Hgb 12.8 g/dL (12.0-16.0) 10/16/18 22:05 Hct 37.2 % (36.0-48.0) 10/16/18 22:05 MCV 90.7 fl (80.0-105.0) 10/16/18 22:05 MCH 31.2 pg (25.0-35.0) 10/16/18 22:05 MCHC 34.4 g/dl (31.0-37.0) 10/16/18 22:05 RDW 12.4 % (11.5-14.5) 10/16/18 22:05 Plt Count 251 10^3/uL (120.0-450.0) 10/16/18 22:05 MPV 10.6 fl (7.0-11.0) 10/16/18 22:05 PT 12.0 SECONDS (9.4-12.5) 10/16/18 22:05 INR 1.05 10/16/18 22:05 APTT 31.0 Seconds (25.1-36.5) 10/16/18 22:05 Sodium 135 mmol/L (132-148) 10/16/18 22:05 Potassium 3.9 mmol/L (3.6-5.0) 10/16/18 22:05 Chloride 104 mmol/L (98-107) 10/16/18 22:05 Carbon Dioxide 23 mmol/L (21-33) 10/16/18 22:05 Anion Gap 11 (10-20) 10/16/18 22:05 BUN 17 mg/dL (7-21) 10/16/18 22:05 Creatinine 0.8 mg/dl (0.7-1.2) 10/16/18 22:05 Est GFR ( Amer) > 60 10/16/18 22:05 Est GFR (Non-Af Amer) > 60 10/16/18 22:05 Random Glucose 104 mg/dL (70-110) 10/16/18 22:05 Hemoglobin A1c 5.5 % (4.2-6.5) 10/17/18 06:00 Calcium 9.3 mg/dL (8.4-10.5) 10/16/18 22:05 Phosphorus 3.4 mg/dL (2.5-4.5) 10/16/18 22:05 Magnesium 1.8 mg/dL (1.7-2.2) 10/16/18 22:05 Total Bilirubin 0.6 mg/dL (0.2-1.3) 10/16/18 22:05 AST 25 U/L (14-36) 10/16/18 22:05 ALT 36 U/L (7-56) 10/16/18 22:05 Alkaline Phosphatase 68 U/L (38-126) 10/16/18 22:05 Lactate Dehydrogenase 528 U/L (333-699) 10/16/18 22:05 Total Creatine Kinase 52 U/L (35-230) 10/16/18 22:05 Troponin I < 0.01 ng/mL 10/17/18 06:30 Total Protein 7.5 g/dL (5.8-8.3) 10/16/18 22:05 Albumin 4.1 g/dL (3.0-4.8) 10/16/18 22:05 Globulin 3.3 gm/dL 10/16/18 22:05 Albumin/Globulin Ratio 1.2 (1.1-1.8) 10/16/18 22:05 Triglycerides 91 mg/dL (35-160) 10/17/18 06:30 Cholesterol 150 mg/dL (130-200) 10/17/18 06:30 LDL Cholesterol Direct 113 mg/dL (0-129) 10/17/18 06:30 HDL Cholesterol 36 mg/dL (29-60) 10/17/18 06:30 Free T4 0.69 ng/dL (0.78-2.19) L 10/17/18 06:00 TSH 3rd Generation 3.66 mIU/mL (0.46-4.68) 10/17/18 06:00 Attending/Attestation - Attestation I have personally seen and examined this patient.: Yes I have fully participated in the care of the patient.: Yes I have reviewed all pertinent clinical information, including history, physical exam and plan: Yes Notes (Text): Please note this DC summary is for 10/17/18. Patient seen and examined by me with resident at 11:55 AM and prior to discharge on 10/17/18. Case including discharge plan discussed with resident. Agree with above with following additions/corrections. Patient is a 53 year old female with past medical history significant for hypertension, gastritis, and GERD that presented to the emergency room with chest pain. Please see H&P for full details. Patient was admitted with atypical chest pain, dry cough, hypertension, and GERD. Cardiology was consulted. Chest pain was reproducible. Troponins were within normal limits. TSH was within normal limits. Free T4 was slightly low. Patient was advised to have repeat thyroid function testing with primary care doctor. Patients cholesterol was within normal limits. Patient had stress test. Per therapy aide, negative stress test for ischemia and for chest pain. Nuclear portion showed essentially normal SPECT myocardial perfusion study; fixed anterior defects most likely due to breast attenuation; normal gated wall motion of left ventricle. 2d echo per therapy aide showed normal chamber size, no pericardial effusion, no vegetation or thrombus noted. Patient was feeling better. Patient was cleared for discharge by therapy aide Dr. Cabrera on home Lisinopril. Patient was discharged home. On day of discharge, patient stated she was feeling much better. Chest pain improved. No shortness of breath or palpitations. No nausea, vomiting, or abdominal pain. No headaches or dizziness. No lightheadedness. No dysuria. No fevers or chills. No diarrhea or constipation. Physical exam: General: Awake and alert lying in bed in no acute distress HEENT: Normocephalic, atraumatic. Extraocular muscles intact, pupils equal and reactive, no scleral icterus. Oropharynx is pink and moist. No pharyngeal erythema or exudate appreciated. Neck is supple. Cardiovascular: Regular rhythm. Normal S1 and S2.No murmurs, rubs, or gallops appreciated Pulmonary: Normal respiratory effort. No rhonchi, rales, or wheezing appreciated. Gastrointestinal: Soft, nondistended. Nontender. Positive bowel sounds all 4 quadrants. No guarding. Musculoskeletal: Moves all extremities. No edema appreciated. No calf tenderness. Central nervous system: AAOx3, CN 2-12 grossly intact. Dermatologic: Skin warm and dry. Please see chart for full details. Follow up instructions: Patient to follow up with primary care doctor within 3-5 days. Patient to follow up with therapy aide within one week of discharge. Continue home Lisinopril. All instructions explained to the patient in detail. Patient both understands and agrees to all instructions. Written instructions also given. Time spent in discharging the patient including chart review, medication reconciliation, discussion with the patient, medical billing and coding specialist, consultants, and nursing staff was 35 minutes.
== END 2018-10-17 13:40 | disposition home or self-care (01) ==
LOC: ED 21:28 → ERH 10-17 00:38 → 2RNO 10-17 01:49
PROVIDERS: ADMIT Hospitalist; ATTEND Hospitalist
DX: R07.89 Other chest pain (principal); I10 Essential (primary) hypertension; K21.9 Gastro-esophageal reflux disease without esophagitis; Z90.710 Acquired absence of both cervix and uterus
CPT/HCPCS: 36415; 71045; 78452; 80053; 80061; 82550; 83036; 83615; 83735; 84100; 84439; 84443; 84484; 85027; 85610; 85730; 93005; 93017; 93306; 99285; A9502; G0378